=== PATIENT | male | born 1985 | race Caucasian/White ===

== ENCOUNTER → 2018-07-09 | Outpatient (CLI) | payer BC ==
[~2018-07-09] MED LIST: HYDR-4226 PO
--- NOTE | 2018-07-09 09:08 | Diagnostic Imaging Report ---
PROCEDURE: MRI lumbar spine. TECHNIQUE: Multiplanar, multisequence MRI of the lumbar spine was performed without contrast. INDICATION: Increasing low back pain extending to the left buttock and leg region. Patient also complains of numbness and tingling in the toes. No prior studies are available for comparison. FINDINGS: Curvature of the lumbar spine is normal. There is minimal retrolisthesis of L5 on S1. The vertebral body heights are maintained. The marrow signal intensity is unremarkable. No geographic marrow lesion or acute compression fracture is identified. There is fairly normal height and hydration to the lumbar intervertebral discs with exception of L5-S1 which does show some mild disc space narrowing and desiccation consistent with degenerative disc disease. The conus is unremarkable at the T12-T11 level. T12-L1: The central canal and neural foramina are widely patent. L1-L2: Central canal is widely patent. The neural foramina are patent. L2-L3: No significant central canal or neural foramina stenosis is identified. L3-L4: There is minimal flattening of the ventral thecal sac. However, no focal disc protrusion is seen. Central canal remains widely patent. Minimal broad-based disc/osteophyte complex on the left at this level produces very slight narrowing of the left neural foramen. Right foramen is patent. L4-L5: There is some mild broad-based annular bulging flattening the ventral thecal sac. AP dimensions of the central canal remain within normal limits, however. No significant neural foramina narrowing is seen. L5-S1: There is a large wide based midline disc bulge. This indents the ventral thecal sac. This does create central canal stenosis. AP dimension of central canal approximately 7 mm. There is also marked narrowing of the lateral recesses. Moderate bilateral neural foraminal stenosis is also present. Paraspinous tissues are unremarkable. IMPRESSION: Multilevel spondylosis, described level by level above. There is a large wide based midline disc bulge L5-S1 resulting in central canal and bilateral neural foraminal stenosis. Dictated by: Dictated on workstation # [id number]
== END ==
LOC: RAD 07:52
PROVIDERS: ATTEND Family Medicine
DX: M51.27 Other intervertebral disc displacement, lumbosacral region (principal); M48.07 Spinal stenosis, lumbosacral region; M47.816 Spondylosis without myelopathy or radiculopathy, lumbar region; M51.37 Other intervertebral disc degeneration, lumbosacral region
CPT/HCPCS: 72148